=== PATIENT | female | born 1955 ===

== ENCOUNTER 2017-03-23 16:39 | Emergency (ER) | payer MEDICARE, OTHER ==
[2017-03-23 16:39] VITALS: O2SAT 98
[2017-03-23 17:09] VITALS: PULSE 91; RESP 18; TEMP 96.6
[2017-03-23] MEDS ORDERED: LIDOCAINE HCL 2% (VISCOUS) 20 ML SOL MT ONE (17:12)
[2017-03-23] MEDS ORDERED: LIDOCAINE HCL 2% (VISCOUS) 20 ML SOL ONE (17:16)
[2017-03-23 17:35] VITALS: BP 159/95
== END 2017-03-23 17:34 | disposition home or self-care (01) | DRG 159 ==
LOC: ED 16:39
DX: K08.89 Other specified disorders of teeth and supporting structures (principal)
CPT/HCPCS: 99282